=== PATIENT | male | born 1970 | race Caucasian/White ===

== ENCOUNTER 2021-01-19 15:37 | Emergency (ER) | payer OTHER ==
[2021-01-19 15:50] VITALS: BP 152/76; PULSE 67; TEMP 98; BMI 25.8
[2021-01-19 18:11] LABS: BASO % 1.2 % (0-2.0); EOS % 4.9 % (0-4.5); HEMOGLOBIN 15.3 GM/dL (11.7-16.9); LYMPH % 33.9 % (8-40); MCH 35.8 pg (25.7-33.7); MCHC 34.9 g/dl (32.0-35.9); MEAN CELL VOLUME 102.6 fl (80-96); MEAN PLT VOLUME 10.2 fl (7.5-11.1); MONO % 18.9 % (3.8-10.2); NEUT % 41.1 % (42.8-82.8); PLATELET COUNT 78 K/MM3 (134-434); RBC 4.28 M/mm3 (4.00-5.60); RDW 13.9 % (11.9-15.9); WHITE BLOOD COUNT 3.7 K/mm3 (4.0-10.0)
[2021-01-19 18:12] LABS: PH,URINE 7.5 (5.0-8.0); URINE APPEARANCE TURBID; URINE BILIRUBIN NEGATIVE (NEGATIVE); URINE COLOR YELLOW; URINE GLUCOSE (UA) NEGATIVE (NEGATIVE); URINE KETONE NEGATIVE (NEGATIVE); URINE LEUK ESTERASE NEGATIVE (NEGATIVE); URINE NITRITE NEGATIVE (NEGATIVE); URINE PROTEIN NEGATIVE (NEGATIVE)
[2021-01-19 18:27] LABS: CHLORIDE 104 mmol/L (98-107); SODIUM 138 mmol/L (136-145)
[2021-01-19 18:30] LABS: ALBUMIN 2.8 g/dl (3.4-5.0); ANION GAP 7 MMOL/L (8-16); CALCIUM 9.4 mg/dL (8.5-10.1); CO2 28 mmol/L (21-32); GLUCOSE,RANDOM 109 mg/dL (74-106)
[2021-01-19 18:33] LABS: SGPT/ALT 144 U/L (13-61)
[2021-01-19 18:34] LABS: CREATININE 0.6 mg/dL (0.55-1.3); SGOT/AST 178 U/L (15-37)
[2021-01-19 18:35] LABS: TOT PROT 8.3 g/dl (6.4-8.2)
[2021-01-19 18:36] LABS: ALK PHOS 135 U/L (45-117); BLOOD UREA NITROGEN 9.9 mg/dL (7-18)
[2021-01-19 18:38] LABS: N-TERMINAL BNP 23.8 pg/ml (5-125)
== END 2021-01-19 23:57 | disposition left against medical advice (07) ==
LOC: JER 15:37
DX: R60.0 Localized edema (principal); I71.2 Thoracic aortic aneurysm, without rupture
CPT/HCPCS: 36415; 71046-TC-FY; 71275-TC; 74174-TC; 80053; 81003; 82550; 82553; 83880; 84484; 85025; 93005; 93010; 99285-25; C9803; Q9967; U0003; U0005